=== PATIENT | female | born 1955 | race Caucasian/White ===

== ENCOUNTER → 2020-10-17 10:28 | Outpatient (CLI) | payer MEDICARE, OTHER, SELFPAY ==
--- NOTE | 2020-10-17 10:32 | MM_ITS ---
PROCEDURE: MM DIG MAMM BI DX W/CAD Digital Breast Tomosynthesis Included Right breast ultrasound complete with axilla CLINICAL INDICATION: palp area right breast COMPARISON: US US BREAST RT COMPLETE from 10/17/2020 TECHNIQUE: Standard images performed along with spot compression views of the right breast and right breast ultrasound FINDINGS: There is average fibroglandular tissue. There are no previous exams available for comparison. There is asymmetric increased density in the retroareolar region on the right in the central 1/3 of the right breast. There is some mild nipple retraction on the right. This area of asymmetric density measures approximately 4 x 4 cm. The margins are not well delineated. Indeterminate calcification noted in the region of the mass anteriorly there are mildly prominent bilateral axillary lymph nodes. The left breast has an unremarkable appearance. Right breast ultrasound: A shadowing spiculated mass is present at the 10-11 o'clock region near the nipple. The posterior margins of the mass are difficult to delineate due to the shadowing. The mass measures approximately 4 x 4 cm corresponding to the mammographic abnormality. This is highly suspicious for neoplasm. Incidental note is made and enlarged right axillary lymph node measuring 3 x 1 cm with a cortical thickness of approximately 5 mm. An additional axillary lymph node is present measuring 2.5 cm. IMPRESSION: Highly suspicious mass of the right breast. Surgical consult suggested. If imaging guided biopsy is desired, then it could be performed with ultrasound with mammotome BI-RAD Category: 5 Highly Suggestive Of Malignancy FOLLOW-UP: BIO Biopsy Recommended (A letter has been sent to the patient regarding results of the study.) Dictated by: Neftaly England MD 10/20/2020 15:52 Neftaly England MD in [place] 10/20/2020 15:52
== END ==
PROVIDERS: PCP Emergency Medicine; Visit Provider Emergency Medicine
DX: R92.8 Other abnormal and inconclusive findings on diagnostic imaging of breast (principal)
CPT/HCPCS: 76641; 77062; 77066; G0279

== ENCOUNTER → 2020-11-11 12:36 | Outpatient (CLI) | payer MEDICARE, OTHER, SELFPAY | PROVIDERS: Visit Provider Emergency Medicine | DX: R92.8 Other abnormal and inconclusive findings on diagnostic imaging of breast (principal) | CPT/HCPCS: 88173; 88305; 88342; 88360 ==

== ENCOUNTER → 2020-11-11 12:52 | Outpatient (CLI) | payer MEDICARE, OTHER, SELFPAY ==
--- NOTE | 2020-11-11 12:59 | US_ITS ---
PROCEDURE: US MAMMOTOME BX RT CLINICAL INDICATION: RT BREAST MASS COMPARISON: US US BREAST RT COMPLETE from 10/17/2020 MG MM DIG MAMM BI DX W/CAD from 10/17/2020 MG MM DIG MAMM DX UNILAT RT CAD from 11/11/2020 US US FNA LYMPH NODE from 11/11/2020 FINDINGS: Patient has a palpable right breast mass at the 10 o'clock position. Following obtaining informed consent and time-out procedure under aseptic conditions and local anesthesia with 1 percent buffered lidocaine and deeper anesthesia with lidocaine mixed with epinephrine, 10 gauge mammotome needle was inserted within the right breast mass and multiple mammotome biopsies were obtained. A clip was then placed within the mass. The patient tolerated the procedure well without evidence of immediate complication. Post biopsy mammogram was performed. In the same setting, FNA was performed of enlarged right axillary lymph node with no immediate complications. 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 Cytology of right axillary lymph node: Suspicious, rare atypical cells suspicious for tumor Post biopsy mammogram demonstrates the clip within the outer aspect of the right breast central 1/3 at approximately 10 o'clock. This is within the right breast mass previously described. There is also some asymmetry in the right axillary region likely due to lidocaine infiltration. IMPRESSION: Uneventful ultrasound-guided mammotome biopsy of the right breast which shows invasive moderately differentiated ductal carcinoma and focal ductal carcinoma in situ with FNA of right axillary lymph node suspicious for tumor. Surgical consult and oncology consult recommended Dictated by: Neftaly England MD 11/19/2020 12:19 Neftaly England MD in [place] 11/19/2020 12:19
== END ==
PROVIDERS: PCP Emergency Medicine; Visit Provider Surgery
DX: N63.10 Unspecified lump in the right breast, unspecified quadrant (principal); R92.8 Other abnormal and inconclusive findings on diagnostic imaging of breast
CPT/HCPCS: 10005; 76641; 77061; 77065; 88173; 88305; 88342; 88360; C2618; G0279

== ENCOUNTER → 2020-12-16 11:13 | Outpatient (CLI) | payer MEDICARE, OTHER, SELFPAY ==
[2020-12-16 12:29] LABS: Basophils # 0.3 K/mm3 (0-0.2); Basophils % 2.4 % (0.1-2.0); Eosinophils # 0.2 K/mm3 (0.0-0.4); Eosinophils % 1.9 % (0.1-12.0); Hematocrit 40.3 % (37.0-47.0); Hemoglobin 13.1 g/dL (12.2-16.2); Lymphocytes % 26.9 % (10-50); Mean Corpuscular HGB Conc 32.5 g/dL (31.8-35.4); Mean Corpuscular Hemoglobin 31.8 pg (27.0-31.2); Mean Platelet Volume 14.2 fl (7.4-10.4); Monocytes # 0.5 K/mm3 (0.1-1.0); Monocytes % 4.8 % (1.7-9.3); Neutrophils # 7.2 K/mm3 (1.8-7.8); Platelet Count 235 K/mm3 (142-424); Red Blood Count 4.11 M/mm3 (4.20-5.40); Red Cell Distribution Width 16.6 % (11.5-17.5); White Blood Count 11.2 K/mm3 (4.8-10.8)
[2020-12-16 13:21] LABS: Chloride 106 mmol/L (98-107); Potassium 4.2 mmoL/L (3.5-5.1); Sodium 142 mmol/L (136-145)
[2020-12-16 13:24] LABS: Anion Gap 13.2 mEq/L (5-15); Blood Urea Nitrogen 12 mg/dl (7-17); Carbon Dioxide 27 mmol/L (22.0-30.0); Estimated Glomerular Filt Rate 84 ml/min (>60); GFR (African American) 102 ML/MIN (>60)
[2020-12-16 13:25] LABS: Calcium 9.6 mg/dl (8.4-10.2); Glucose 207 mg/dl (74-100)
== END ==
PROVIDERS: Visit Provider Surgery
DX: C50.411 Malignant neoplasm of upper-outer quadrant of right female breast (principal); Z17.0 Estrogen receptor positive status [ER+]; Z01.812 Encounter for preprocedural laboratory examination; Z20.822 Contact with and (suspected) exposure to COVID-19
CPT/HCPCS: 36415; 80048; 85025; U0003

== ENCOUNTER 2020-12-18 10:52 | Observation (INO) | payer MEDICARE, OTHER, SELFPAY ==
[2020-12-15 15:02] VITALS: BMI 23.3
[2020-12-18] VITALS (23 sets, daily range): BP systolic 98–152; BP diastolic 48–102; PULSE 70–110; RESP 12–20; TEMP 36.1–43; O2SAT 93–97
--- NOTE | 2020-12-18 07:47 | HMH.ANESCL ---
[facility] Anesthesia Checklist - Structural Data Admitted From: Home Planned Operative Procedure/s: r mastectomy Consent for Planned Operative Procedure(s) Verified: Yes - Additional verifications Anesthesia Reactions: Yes (nausea) Hx Blood Transfusions: No Blood Transfusion Reaction: No - Airway Assessment C-Spine Mobility Assessed: No (limited flex/ext) TMJ Mobility Assessed: Yes Dentition: Poor Dentition - Neurological Assessment Level of Consciousness: Awake, Alert, Appropriate - Anesthesia Plan Anesthesia Risk discussed: Yes Anesthesia Plan: Verified ASA Class: III Anesthesia Type: General [facility] History I have reviewed the patient's past medical history: Yes Medical History: Reports:: Gastroesophageal Reflux Disease(GERD), Hyperlipidemia, Hypertension, Seizures Denies:: Cancer, Diabetes Mellitus Type 1, Diabetes Mellitus Type 2, MRSA *Have you ever received a pneumonia vaccine?: Yes *Have you received a flu vaccine this season?: Yes Other Medical History: Denies: Blood Transfusion Reaction Anesthesia experience/problems:: none Laterality Cases: Bilateral: Tonsillectomy Other Surgeries: Yes: Colonoscopy Amputation: No - *Social History Smoking Status: Current every day smoker Tobacco Type: cigarettes # Packs/Day (cigarettes): 1 Alcohol Intake: never Substance Use Type: denies use *Occupational Status:: retired Housing: assisted living facility *Travel in the last 8 weeks: None Family Hx:: No significant family history
--- NOTE | 2020-12-18 09:55 | HMH.GSHP ---
HPI HPI: This is a 65-year-old female with a large right-sided breast lesion. Recent biopsies confirmed ductal carcinoma. Ultrasound-guided biopsy of an enlarged axillary lymph node was positive for atypical cells. After discussion with the patient concerning the risks and benefits the decision was made to proceed with modified radical mastectomy. [facility] History Medical History: Reports:: Gastroesophageal Reflux Disease(GERD), Hyperlipidemia, Hypertension, Seizures Denies:: Cancer, Diabetes Mellitus Type 1, Diabetes Mellitus Type 2, MRSA *Have you ever received a pneumonia vaccine?: Yes *Have you received a flu vaccine this season?: Yes Other Medical History: Denies: Blood Transfusion Reaction Anesthesia experience/problems:: none Laterality Cases: Bilateral: Tonsillectomy Other Surgeries: Yes: Colonoscopy Amputation: No - *Social History Smoking Status: Current every day smoker Tobacco Type: cigarettes # Packs/Day (cigarettes): 1 Alcohol Intake: never Substance Use Type: denies use *Occupational Status:: retired Housing: assisted living facility *Travel in the last 8 weeks: None Family Hx:: No significant family history Meds Home Medications Medication Instructions Recorded Confirmed Type Albuterol Sulfate [Albuterol 2 puffs IH QIDP PRN 03/09/19 12/15/20 History Sulfate Hfa] Atorvastatin Calcium [Lipitor 40mg 40 mg PO DAILY 03/09/19 12/15/20 History Tab] Buspirone HCl [Buspirone 7.5mg 7.5 mg PO BID 03/09/19 12/15/20 History tablets] Duloxetine HCl [Cymbalta 30mg 30 mg PO DAILY 03/09/19 12/15/20 History capsule] Fluticasone Propionate 1 spray IN DAILYP PRN 03/09/19 12/15/20 History Metoprolol Succinate 50 mg PO DAILY 03/09/19 12/15/20 History OLANZapine [Zyprexa 5mg tablet] 5 mg PO HS 03/09/19 12/15/20 History raNITIdine HCL [Ranitidine HCl] 150 mg PO BID 03/09/19 12/15/20 History Benztropine Mesylate 0.5 mg PO BID 12/15/20 12/15/20 History Fluticasone Propion/Salmeterol 2 puff INHALATION BID 12/15/20 12/15/20 History [Advair HFA] Allergies Allergy/AdvReac Type Severity Reaction Status Date / Time acetaminophen [From Percocet] Allergy Verified 12/10/20 13:54 cabbage Allergy Verified 12/10/20 13:54 clarithromycin [From Biaxin] Allergy Verified 12/10/20 13:54 meperidine [From Demerol] Allergy Verified 12/10/20 13:54 mushroom Allergy Verified 12/10/20 13:54 oxycodone [From Percocet] Allergy Verified 12/10/20 13:54 rofecoxib [From Vioxx] Allergy Verified 12/10/20 13:54 shellfish derived Allergy Verified 12/10/20 13:54 Sulfa (Sulfonamide Allergy Verified 12/10/20 13:54 Antibiotics) Exam Vital signs and Labs for Last 24 Hours: Temp Pulse Resp BP Pulse Ox 97.7 F 70 18 127/74 97 12/18/20 06:18 12/18/20 06:18 12/18/20 06:18 12/18/20 06:18 12/18/20 06:18 I & O for Last 24 hours: Intake & Output 12/15/20 12/16/20 12/17/20 12/18/20 11:59 11:59 11:59 11:59 Weight 140 lb - Constitutional no acute distress - *Routine HEENT Exam Head: Present: normocephalic Eye: Present: EOMI ENT: Present: mucous membranes moist - *Routine Neck Exam Present: full ROM - Routine Chest/Breast/Axilla Exam Breast: Present: mass - *Routine Respiratory Exam Absent: respiratory distress - *Routine Cardiovascular Exam Present: RRR - *Routine Abdominal Exam Present: soft - *Routine Rectal Exam Rectal:: deferred - *Routine Genitalia Exam Genitalia:: deferred - *Routine Extremities Exam Present: full ROM - Routine Back/Spine/Pelvis Exam Back/Spine: Present: full ROM - *Routine Skin Exam Absent: erythema - *Routine Neurological Exam Present: alert - Routine Psychiatric Exam Absent: anxious Assessment and Plan (1) Breast cancer, right Status: Acute Category: Medical Code(s): C50.911 - Malignant neoplasm of unspecified site of right female breast She is scheduled for right modified radical mastectomy. I have discussed the r
--- NOTE | 2020-12-18 09:58 | P.OP_ITS ---
Date of procedure: 12/18/20 Pre-op Diagnosis:: Right breast cancer Post-op Diagnosis:: Same Procedure performed:: Right modified radical mastectomy Surgeon:: Simone Boyce MD Digital Composer(s):: Yessenia TECHNICAL APPLICATIONS SCIENTIST:: Jimena Khoury Anesthesia: GETA Estimated blood loss (mL): 100 Operative findings:: Large firm right breast mass (cancer) with projection to the chest wall. The fascia did not appear to be clinically penetrated. Significant thickening in and around the long thoracic nerve. Operative note:: After informed consent was obtained the patient was taken to the operating room and placed in the supine position. General anesthesia was induced and her right upper arm and chest were prepped and draped in a sterile fashion. An elliptical transverse incision was made to include the large upper outer quadrant/central mass, as well as, the nipple/areolar complex. The superior flap was carefully elevated with electrocautery. The inferior flap was elevated in a similar manner. As the breast was excised from the pectoralis fascia careful evaluation of the cancer showed no definitive sign of fascial penetration. The dissection was taken along the lateral margin of the pectoralis. The axillary tissue was carefully elevated as electrocautery was utilized to transect deep to the pectoralis. Significant thickening in and around the long thoracic nerve was noted. The surrounding lymphatic tissue was excised with every effort made to protect the long thoracic nerve. No definitive injury was noted. The dissection was taken to the level of the axillary vein as the contents were carefully elevated. A small office technician vein was controlled with clips. The entire axillary contents were then excised in toto and passed off along with the breast tissue as a single specimen. The specimen was marked with suture for orientation (short superior/long lateral). Electrocautery was utilized to achieve hemostasis. The entire wound was carefully irrigated. A #10 flat Kavon-Zaragoza drain was placed in the axilla and exited through a right chest stab incision. A second #10 flat Kavon-Zaragoza drain was placed along the mastectomy bed and exited through a slightly more medial stab site. The drains were secured with nylon suture. The deep subcutaneous tissue was reapproximated with interrupted 2-0 Vicryl and skin was closed with running 3-0 Stratafix. Dressings were applied and the patient was transferred to recovery in stable condition after extubation. Condition: stable Disposition: PACU Specimens:: Right modified radical mastectomy (short suture on superior margin and long suture lateral margin) Complications:: No immediate
--- NOTE | 2020-12-18 10:09 | HMH.ANESI ---
[facility] Anesthesia Record Part I Intake, IV Amount: 2,000 Estimated blood loss (mL): 100 Urine output (mL): 350 Blood Pressure: 113/94 SaO2: 94 Pulse Rate: 105 Respiratory Rate: 12 Temperature: 97 F Patient is:: Awake, Stable Stable to PACU at:: 10:05
--- NOTE | 2020-12-18 11:37 | SUR.PHASEI ---
1045 Report given to Roverto Pedersen OBRN. Pt taken to room 279
--- NOTE | 2020-12-18 12:30 | PC.NURSE ---
PT SITTING UP IN BED EATING LUNCH, TOLERATING REGULAR DIET, NO NEEDS VOICED. CALL LIGHT WITHIN REACH
--- NOTE | 2020-12-18 13:41 | PC.NURSE ---
DR. HANNA PAGED AT THIS TIME, REGARDING POST-OP ABX. STATES NO POST-OP ABX NEEDED FOR THIS CASE. Shruti/Danish MERA IN PHARMACY NOTIFIED
--- NOTE | 2020-12-18 14:01 | P.PN_ITS ---
[facility] Anesthesia Record Part II Discharge Time: 10:45 Destination: Surgical Day Care (OP Surgery) PACU nurse assessment reviewed?: Yes Patient Condition:: Good Anesthesia Complications:: None Swallowing reflex intact?: Yes Cyanosis?: No Blood Pressure: 134/64 Pulse Rate: 96 Temperature: 97 F Mental Status: Alert & Oriented Pain level:: 0 Nausea and/or vomitting:: None Intake, IV Amount: 0
[2020-12-18 14:11] LABS: Microscopic,Cath URINE MICROSCOPIC (MICROSCOPIC)
[2020-12-18 14:13] LABS: Appearance,Urine/Cath CLEAR (Clear); Bilirubin,Cath Negative (Negative); Blood, Urine/Cath Negative (Negative); Color,Urine/Cath YELLOW (Yellow); Glucose,Urine/Cath (UA) Negative (Negative); Ketones,Urine/Cath Negative (Negative); Leukocyte Esterase,Cath Negative (Negative); Nitrate,Cath Negative (Negative); PH,Urine/Cath 5.5 (5.0-8.5); Protein,Urine/Cath Negative (Negative); Specific Gravity, Urine/Cath 1.015 (1.005-1.030); Urobilinogen,Cath 0.2 EU/dl (0.2)
[2020-12-18 15:07] LABS: Squamous Epithelial Ur./Cath Occasional #/hpf (0-5)
--- NOTE | 2020-12-18 15:15 | HMH.PHAINT ---
MEDICATION RECONCILIATION COMPLETE [facility]NAL [facility] FILL HISTORY.
--- NOTE | 2020-12-18 15:20 | P.CONPHA_ITS ---
[facility] Pharmacy VTE Monitoring - Patient Demographics Admission date: 12/18/20 Report Date: 12/18/20 Time: 15:20 Allergies/Adverse Reactions: Patient Allergies acetaminophen [From Percocet] Allergy (Verified 12/10/20 13:54) cabbage Allergy (Verified 12/10/20 13:54) clarithromycin [From Biaxin] Allergy (Verified 12/10/20 13:54) meperidine [From Demerol] Allergy (Verified 12/10/20 13:54) mushroom Allergy (Verified 12/10/20 13:54) oxycodone [From Percocet] Allergy (Verified 12/10/20 13:54) rofecoxib [From Vioxx] Allergy (Verified 12/10/20 13:54) shellfish derived Allergy (Verified 12/10/20 13:54) Sulfa (Sulfonamide Antibiotics) Allergy (Verified 12/10/20 13:54) Height: 1.65 m Weight: 63.503 kg Patient Problems: Current Active Problems Breast cancer, right (Acute) - VTE Risk Was VTE Risk Assessment Performed: Yes VTE Score: 3 VTE Risk Level: Low Risk Clinical Trial Participant: No - Prophylaxis VTE Prophylaxis Ordered?: Yes Types of VTE Prophylaxis: TEDS Knee High Location of Applied Device: Bilateral Lower Extremeties
--- NOTE | 2020-12-18 16:25 | PC.NURSE ---
DR. HANNA NOTIFIED OF IV INFILTRATION, PT WITH MULTIPLE IV ATTEMPTS IN PRE-OP. ORDERS TO D/C AT THIS TIME. PT HAS NOT REQUIRED IV MEDS, TOLERATING REGULAR DIET WITHOUT N/V
--- NOTE | 2020-12-18 16:40 | PC.NURSE ---
PT HAS RESTED WELL SINCE SURGERY, A&O X 4. HEART RATE REGULAR, NO EDEMA. LUNGS CTAB, USING INCENTIVE SPIROMETER DIRECTED, BOWEL SOUNDS X 4 QUADS. TOLERATING REGULAR DIET WITHOUT N/V. NO C/O PAIN. IV DC'D PER MD ORDER, SITE INFILTRATED, PT WITH MULTIPLE IV ATTEMPTS IN PRE-OP, HAS NOT NEEDED IV MEDS. EPIFANIO DRAINS X 2, SEROSANG DRAINAGE NOTED. NO DRAINAGE NOTED TO DRESSINGS. PT MOVES EXTREMITIES EQUALLY, FULL ROM. PULSES PALPABLE. CALL LIGHT WITHIN REACH, PT MAKES NEEDS KNOWN. WILL CONTINUE TO MONITOR
[2020-12-19] VITALS: BP 142/76; PULSE 104; RESP 18; TEMP 37.1; O2SAT 99
[2020-12-19 04:00] VITALS: BP 120/50; PULSE 86; RESP 18; TEMP 36.7; O2SAT 98
[2020-12-19 05:22] LABS: Basophils % 0.2 % (0.1-2.0); Chloride 107 mmol/L (98-107); Eosinophils % 0.1 % (0.1-12.0); Hematocrit 30.6 % (37.0-47.0); Hemoglobin 10.7 g/dL (12.2-16.2); Lymphocytes # 1.6 K/mm3 (0.7-4.5); Lymphocytes % 10.4 % (10-50); Mean Corpuscular HGB Conc 34.9 g/dL (31.8-35.4); Mean Corpuscular Hemoglobin 32.7 pg (27.0-31.2); Mean Corpuscular Volume 93.6 fl (81-99); Mean Platelet Volume 8.7 fl (7.4-10.4); Monocytes # 0.7 K/mm3 (0.1-1.0); Monocytes % 4.5 % (1.7-9.3); Neutrophils # 13.2 K/mm3 (1.8-7.8); Neutrophils % 84.8 % (37.0-80.0); Platelet Count 218 K/mm3 (142-424); Red Blood Count 3.26 M/mm3 (4.20-5.40); Sodium 138 mmol/L (136-145); White Blood Count 15.6 K/mm3 (4.8-10.8)
[2020-12-19 05:25] LABS: Blood Urea Nitrogen 25 mg/dl (7-17); Carbon Dioxide 26 mmol/L (22.0-30.0); Creatinine Clearance Estimated 56 mL/min (50-200); Estimated Glomerular Filt Rate 72 ml/min (>60); GFR (African American) 87 ML/MIN (>60); MANUAL DIFFERENTIAL MANUAL DIFFERENTIAL (MANUAL DIFF)
[2020-12-19 05:26] LABS: Calcium 8.9 mg/dl (8.4-10.2); Glucose 182 mg/dl (74-100)
--- NOTE | 2020-12-19 05:26 | PC.NURSE ---
pt has rested well thorughout shift, no change from previous assessment, surgical dressing to right breast remains clean dry and intact with two ruby drains in place, pain has been well controlled, pt only needed prn pain medication x 1 this shift, pt has only had 100 ml and one unmeasured void this shift, fluids encouraged and pt verbalizes understanding, call light within reach will continue to monitor at this time
[2020-12-19 06:00] LABS: Lymphocytes % 10 % (10-50); Neutrophils % 90 % (42-76); Total Cells Counted 100
[2020-12-19 06:01] LABS: Ovalocytes 1+; Platelet Estimate Normal
[2020-12-19 08:15] VITALS: BP 131/48; PULSE 85; RESP 16; TEMP 36.8; O2SAT 98
--- NOTE | 2020-12-19 08:35 | P.PN_ITS ---
Subjective Patient reports: no new complaints Progress Note: A&P (1) Breast cancer, right Status: Acute Assessment and plan: Overall, doing well status post right modified radical mastectomy. Discharge home with outpatient follow-up [facility] teaching Exam Vital signs and Labs for Last 24 Hours: Temp Pulse Resp BP Pulse Ox 98.1 F 86 18 120/50 L 98 12/19/20 04:00 12/19/20 04:00 12/19/20 04:00 12/19/20 04:00 12/19/20 04:00 Laboratory Results - last 24 hr 12/18/20 07:50: Urine Color Yellow, Urine Appearance Clear, Urine pH 5.5, Ur Specific [place] 1.015, Urine Protein Negative, Urine Glucose (UA) Negative, Urine Ketones Negative, Urine Blood Negative, Urine Nitrate Negative, Urine Bilirubin Negative, Urine Urobilinogen 0.2, Ur Leukocyte Esterase Negative, Urine RBC None, Urine WBC None, Ur Squamous Epith Cells Occasional, Urine Bacteria None 12/19/20 05:06: WBC 15.6 H D, RBC 3.26 L, Hgb 10.7 L, Hct 30.6 L, MCV 93.6, MCH 32.7 H, MCHC 34.9, RDW 14.0, Plt Count 218, MPV 8.7, Neut % (Auto) 84.8 H, Lymph % (Auto) 10.4, [place] % (Auto) 4.5, Eos % (Auto) 0.1, Baso % (Auto) 0.2, Neut # (Auto) 13.2 H, Lymph # (Auto) 1.6, [place] # (Auto) 0.7, Eos # (Auto) 0.0, Baso # (Auto) 0.0, Total Counted 100, Neutrophils % (Manual) 90 H, Lymphocytes % (Manual) 10, Platelet Estimate Normal, Ovalocytes 1+ 12/19/20 05:06: Sodium 138, Potassium 4.0, Chloride 107, Carbon Dioxide 26, Anion Gap 9.0, BUN 25 H D, Creatinine 0.80, Estimated Creat Clear 56, Estimated GFR 72, Est GFR ( Amer) 87, Glucose 182 H, Calcium 8.9 I & O for Last 24 hours: Intake & Output 08/03/21 08/04/21 08/05/21 08/06/21 11:59 11:59 11:59 11:59 Intake Total 1999 120 / 120 Output Total 460 / 460 Balance 1999 -340 / -340 Weight 140 lb - Constitutional no acute distress - Routine Chest/Breast/Axilla Exam Comments: Dressing in place. Serosanguineous drainage and Kavon-Zaragoza drains. No spreading cellulitis. - *Routine Respiratory Exam Absent: respiratory distress - *Routine Cardiovascular Exam Present: RRR
--- NOTE | 2020-12-19 08:42 | HMH.DCSUM ---
General - General Admission date:: 12/18/20 Discharge date: 12/19/20 HPI HPI: This is a 65-year-old female who has recently been diagnosed with a large right breast cancer with enlarged axillary lymph nodes. Ultrasound-guided biopsy of the lymph nodes revealed atypical cells and the decision was made to proceed with modified radical mastectomy. Hospital Course Hospital Course: The patient underwent right modified radical mastectomy. Please see operative report for detail. Postoperatively she progressed well. She remained afebrile with stable and normal vital signs and had no difficulty ambulating. On the morning of postoperative day 1 she was deemed appropriate for discharge with close outpatient follow-up. Kavon-Zaragoza drain teaching implemented. Objective Vital signs: Temp Pulse Resp BP Pulse Ox 98.1 F 86 18 120/50 L 98 12/19/20 04:00 12/19/20 04:00 12/19/20 04:00 12/19/20 04:00 12/19/20 04:00 no acute distress - *Routine HEENT Exam Head: Present: normocephalic Eye: Present: EOMI ENT: Present: mucous membranes moist - *Routine Neck Exam Present: full ROM - Routine Chest/Breast/Axilla Exam Breast: Present: right mastectomy - *Routine Respiratory Exam Absent: respiratory distress - *Routine Cardiovascular Exam Present: RRR - *Routine Abdominal Exam Present: soft - *Routine Rectal Exam Patient deferred: visual exam - *Routine Exam Patient deferred: external exam - *Routine Extremities Exam Present: full ROM - Routine Back/Spine/Pelvis Exam Back/Spine: Present: full ROM - *Routine Skin Exam Absent: erythema - *Routine Neurological Exam Present: alert - Routine Psychiatric Exam Present: normal affect Results Labs on day of discharge: Labs from last 24 hours 12/19/20 12/19/20 12/18/20 05:06 05:06 07:50 WBC 15.6 H D RBC 3.26 L Hgb 10.7 L Hct 30.6 L MCV 93.6 MCH 32.7 H MCHC 34.9 RDW 14.0 Plt Count 218 MPV 8.7 Neut % (Auto) 84.8 H Lymph % (Auto) 10.4 [place] % (Auto) 4.5 Eos % (Auto) 0.1 Baso % (Auto) 0.2 Neut # (Auto) 13.2 H Lymph # (Auto) 1.6 [place] # (Auto) 0.7 Eos # (Auto) 0.0 Baso # (Auto) 0.0 Total Counted 100 Neutrophils % (Manual) 90 H Lymphocytes % (Manual) 10 Platelet Estimate Normal Ovalocytes 1+ Sodium 138 Potassium 4.0 Chloride 107 Carbon Dioxide 26 Anion Gap 9.0 BUN 25 H D Creatinine 0.80 Estimated Creat Clear 56 Estimated GFR 72 Est GFR ( Amer) 87 Glucose 182 H Calcium 8.9 Urine Color Yellow Urine Appearance Clear Urine pH 5.5 Ur Specific [place] 1.015 Urine Protein Negative Urine Glucose (UA) Negative Urine Ketones Negative Urine Blood Negative Urine Nitrate Negative Urine Bilirubin Negative Urine Urobilinogen 0.2 Ur Leukocyte Esterase Negative Urine RBC None Urine WBC None Ur Squamous Epith Cells Occasional Urine Bacteria None DS: Diagnosis - Discharge Diagnosis (1) Breast cancer, right Status: Acute Discharge Plan - Patient Discharge Instructions ACTIVITY: Continue current activity DIET: regular diet Additional Instructions: EPIFANIO drains -maintain on suction at all times and record daily output from each drain Patient Instructions: DI for Mastectomy - Follow up Plan Follow up with: Simone Boyce MD [Staff Physician] - 12/25/20 Disposition: Home, Self-Care Condition at discharge:: Stable Home Medications: Home Medications Medication Instructions Recorded Confirmed Type Albuterol Sulfate [Albuterol 2 puffs IH QIDP PRN 03/09/19 12/15/20 History Sulfate Hfa] Atorvastatin Calcium [Lipitor 40mg 40 mg PO DAILY 03/09/19 12/15/20 History Tab] Duloxetine HCl [Cymbalta 30mg 30 mg PO DAILY 03/09/19 12/15/20 History capsule] Fluticasone Propionate 1 spray NOSTRIL-B DAILYP PRN 03/09/19 12/18/20 History
--- NOTE | 2020-12-19 09:01 | PC.NURSE ---
Dressing noted to be falling off. New dressing in place. Pt. tolerated well, will continue to monitor.
--- NOTE | 2020-12-19 09:26 | PC.NURSE ---
Spoke with Gwen Truong regarding pt. discharge to [facility] with EPIFANIO drains.
--- NOTE | 2020-12-19 09:55 | SW/DCPLANNER ---
Addendum entered by Jammie Babcock 12/19/20 12:45: [facility] first of next week for this patient. Addendum entered by Jammie Babcock 12/19/20 10:41: Clinton with [facility] has stated that this patient can return with home health services. I will set up home health thru [facility] today. Original Note: This patient will need to discharge home with EPIFANIO drains. Per Dr Boyce the only two things that will need to be done with drains: calculate output and empty once full. I have relayed this message to Clinton with [facility]. Clinton has stated that she will come and evaluate this patient this morning. Clinton has also if patient is a candidate to return to [place] if home health services could be set up.
--- NOTE | 2020-12-19 10:20 | PC.NURSE ---
[facility] staff here to Evaluate pt. for return to [facility].
--- NOTE | 2020-12-19 10:40 | PC.NURSE ---
[facility] agreeable to take pt. back, staff will be here in 15-20minutes to pick pt. up. Discharge education provided to pt. and [facility] staff. Questions encouraged and answered. All V/U.
--- NOTE | 2020-12-19 11:00 | PC.NURSE ---
Pt. Left unit ambulatory, per pt. request. Pt. accompanied by staff x1 and [facility] staff x1.
== END 2020-12-19 11:00 | disposition home or self-care (01) ==
LOC: OB 10:54
PROVIDERS: Admitting Provider Surgery; PCP Emergency Medicine; Visit Provider Surgery
PROC: (CPT 19307; principal; 2020-12-18 07:30)
DX: C50.911 Malignant neoplasm of unspecified site of right female breast (principal); K21.9 Gastro-esophageal reflux disease without esophagitis; E78.5 Hyperlipidemia, unspecified; I10 Essential (primary) hypertension; Z88.2 Allergy status to sulfonamides; Z88.1 Allergy status to other antibiotic agents; Z88.5 Allergy status to narcotic agent; Z88.8 Allergy status to other drugs, medicaments and biological substances; Z91.013 Allergy to seafood; Z79.899 Other long term (current) drug therapy; C77.3 Secondary and unspecified malignant neoplasm of axilla and upper limb lymph nodes
CPT/HCPCS: 19307; G0378; 36415; 80048; 81001; 85007; 85025; 88309; 96374; J2405

== ENCOUNTER → 2021-01-27 08:58 | Outpatient (CLI) | payer MEDICARE, OTHER, SELFPAY ==
--- NOTE | 2021-01-27 09:18 | CT_ITS ---
PROCEDURE: CT CHEST W CON CLINCAL INDICATION: BREAST CANCER COMPARISON: No exams were available for comparison TECHNIQUE: IV Contrast: 75ml Isovue 370 Axial images obtained with sagittal and coronal reformats. All CT scans at the facility use one or more dose reduction, viz: automated exposure control, ma/kV adjustment per patient size (including targeted exams where dose is matched to indication, i.e. head), or iterative reconstruction technique. FINDINGS: HEART AND MEDIASTINAL STRUCTURES: Mildly enlarged thyroid gland with heterogeneous density and coarse calcification on the right. There are few scattered small mediastinal and hilar lymph nodes but no dominant adenopathy. LUNGS AND PLEURAL SPACES: COPD changes are present with prominence of the interstitium in scattered areas of scarring. There is mild diffuse bronchial thickening there is a noncalcified 5 mm nodule in the right upper lobe 4/20. Subpleural opacity is present in the right middle lobe at 5 mm 4/53 in the superior segment of the right lower lobe posteriorly in the subpleural region there is a parenchymal opacity measuring approximately 13 mm by 5 mm. There is some bowing of the rib inward at this area suggesting a possible old fracture with pleural changes. This cyst is in the left lung base there is a 5 mm nodular opacity posteriorly 4/66. 3 mm opacity subpleural region left lower lobe 4/35 there appears to be a suture line in the inferior aspect of the lingula. There is no given history of prior chest surgery. Please correlate with patient's history. BONY STRUCTURES: No acute bony abnormalities apparent. UPPER ABDOMEN: See abdomen report performed on the same day ADDITIONAL FINDINGS: There has been a right mastectomy with postsurgical fluid collection in the mastectomy bed consistent with seroma. No axillary adenopathy. There are few small left axillary lymph nodes. IMPRESSION: COPD with centrilobular emphysema and scattered areas of scarring with diffuse bronchial thickening and prominence of the interstitium There are scattered small subpleural and pulmonary nodular opacities. These are nonspecific and may be post inflammatory. Cannot exclude the possibility of metastatic disease therefore, short-term follow-up is suggested. Dictated by: Neftaly England MD 01/28/2021 14:06 Neftaly England MD in [place] 01/28/2021 14:06
--- NOTE | 2021-01-27 09:18 | CT_ITS ---
PROCEDURE: CT ABDOMEN PELVIS W CON CLINICAL INDICATION: BREAST CANCER COMPARISON: No exams were available for comparison TECHNIQUE: IV Contrast: 75ML Isovue 370 Oral Contrast None Axial images obtained with sagittal and coronal reformats. All CT scans at the facility use one or more dose reduction, viz: automated exposure control, ma/kV adjustment per patient size (including targeted exams where dose is matched to indication, i.e. head), or iterative reconstruction technique. FINDINGS: LOWER THORAX: See chest CT report from the same day. ABDOMEN & PELVIS: No focal liver lesion is evident. There is diffuse fatty infiltration of the liver with some sparing in the portal area. Small cystic area involves the anterior aspect of the spleen at 1 cm. The adrenal glands and pancreas has an unremarkable appearance. No renal calculi or mass evident. No intestinal obstruction or free air. No evidence of appendicitis. There appears to been a prior appendectomy however, that history is not given. Calcific density is present in the right pericolic gutter and could be due to an a skate appendicoliths. Please correlate with patient's surgical history. There is a mild amount of retained colonic feces. There are few colonic diverticula but no evidence of diverticulitis. No pelvic mass or abnormal fluid collection. There is minimal thickening of the fat in the right posterior adnexal area nonspecific. There is mild lumbar curvature convex right. No lytic or blastic bony lesions apparent. IMPRESSION: No convincing evidence of intra-abdominal metastasis. Dictated by: Neftaly England MD 01/28/2021 14:30 Neftaly England MD in [facility] 01/28/2021 14:30
[2021-01-27 09:24] LABS: Basophils # 0.1 K/mm3 (0-0.2); Basophils % 0.9 % (0.1-2.0); Eosinophils # 0.2 K/mm3 (0.0-0.4); Eosinophils % 2.3 % (0.1-12.0); Hemoglobin 13.6 g/dL (12.2-16.2); Lymphocytes # 2.6 K/mm3 (0.7-4.5); Mean Corpuscular HGB Conc 33.2 g/dL (31.8-35.4); Mean Corpuscular Hemoglobin 32.8 pg (27.0-31.2); Mean Corpuscular Volume 98.6 fl (81-99); Mean Platelet Volume 7.8 fl (7.4-10.4); Monocytes # 0.6 K/mm3 (0.1-1.0); Monocytes % 5.7 % (1.7-9.3); Neutrophils # 6.4 K/mm3 (1.8-7.8); Neutrophils % 65.1 % (37.0-80.0); Platelet Count 274 K/mm3 (142-424); Red Blood Count 4.15 M/mm3 (4.20-5.40); Red Cell Distribution Width 13.4 % (11.5-17.5); White Blood Count 9.9 K/mm3 (4.8-10.8)
[2021-01-27 09:34] LABS: Alanine Aminotransferase 24 U/L (12-78); Albumin Level 4.9 g/dl (3.5-5.0); Albumin/Globulin Ratio 1.4 (1.1-1.8); Alkaline Phosphatase 121 U/L (38-126); Anion Gap 16.2 mEq/L (5-15); Aspartate Amino Transferase 34 U/L (14-36); Bilirubin,Total 0.5 mg/dl (0.2-1.3); Blood Urea Nitrogen 13 mg/dl (7-17); Calcium 10.3 mg/dl (8.4-10.2); Carbon Dioxide 28 mmol/L (22.0-30.0); Chloride 103 mmol/L (98-107); Estimated Glomerular Filt Rate 84 ml/min (>60); GFR (African American) 102 ML/MIN (>60); Globulin 3.6 g/dL (1.3-3.2); Glucose 152 mg/dl (74-100); Potassium 4.2 mmoL/L (3.5-5.1); Sodium 143 mmol/L (136-145); Total Protein,Serum 8.5 g/dl (6.3-8.2)
== END ==
PROVIDERS: PCP Emergency Medicine; Visit Provider Internal Medicine Medical Oncology
DX: C50.911 Malignant neoplasm of unspecified site of right female breast (principal); Z03.89 Encounter for observation for other suspected diseases and conditions ruled out
CPT/HCPCS: 36415; 71260; 74177; 80053; 85025; Q9967

== ENCOUNTER → 2021-06-02 08:57 | Outpatient (CLI) | payer MEDICARE, OTHER, SELFPAY ==
--- NOTE | 2021-06-02 09:10 | CT_ITS ---
FINAL REPORT CLINICAL HISTORY: BREAST CANCER FINDINGS: CT OF THE ABDOMEN AND PELVIS WITH CONTRAST Axial CT images of the abdomen and pelvis were obtained after the administration of oral and iv contrast. Coronal reformatted images were also obtained and reviewed.This study was performed with techniques to keep radiation doses as low as reasonably achievable (ALARA). Individualized dose reduction techniques using automated exposure control or adjustment of mA and/or kV according to the patient's size were employed. Abdomen: The liver has an unremarkable appearance, without evidence of mass or biliary ductal dilatation. There is a stable 7 mm low-attenuation mass in the anterior spleen which may represent a cyst or hemangioma. There is mild left adrenal gland enlargement favored to represent hyperplasia. The pancreas has an unremarkable appearance. The kidneys are normal, without evidence of mass or hydronephrosis. The aorta is normal in caliber. There is no free fluid or adenopathy. No new mass or adenopathy. Oral contrast is much denser than usual causing streak artifact which obscures much of the detail in the pelvis or lower abdomen. Pelvis: The appendix is not well-visualized. The urinary bladder is unremarkable. No inflammatory process is seen. There is no evidence of mass or adenopathy. There is no evidence of bowel obstruction. IMPRESSION: Stable low attenuation mass in the anterior spleen which may represent a cyst or hemangioma. Mild left adrenal gland enlargement, favor hypoplasia. No new mass or adenopathy. Reviewed, Interpreted and Dictated by Hermann Madrid III, MD Transcribed by Alejandrina Millard Authenticated by Hermann Madrid III, MD on 06/02/2021 01:07:10 PM [facility]
--- NOTE | 2021-06-02 09:10 | CT_ITS ---
FINAL REPORT CLINICAL HISTORY: BREAST CANCER COMPARISON: 01/27/2021 FINDINGS: Axial CT images of the chest were obtained with contrast. Coronal reformatted images were also obtained. This study was performed with techniques to keep radiation doses as low as reasonably achievable, (ALARA). Individualized dose reduction techniques using automated exposure control or adjustment of mA and/or KV according to the patient's size were employed. Multiple thyroid nodules are visually stable. There are borderline sized mediastinal and hilar lymph nodes. A precarinal lymph node measures 17 mm and previously measured 17 mm. Other nodes are also stable. There are borderline sized left axillary nodes which are stable. Postoperative changes are seen in the right axilla. There are postoperative changes from right mastectomy. There has been interval improvement in right chest wall fluid collection which likely represents a seroma or chronic hematoma. There is moderate emphysema. Mild scarring is seen. There is a stable 5 mm nodule in the right upper lobe on image 23. There is no new mass or nodule. IMPRESSION: Stable borderline mediastinal, hilar, and left axillary lymph nodes which may be reactive. Neoplastic process is not excluded. Follow-up CT or PET-CT may be beneficial. Improved seroma or chronic hematoma in the right chest wall. Stable small right upper lobe nodule with no new mass or nodule. Reviewed, Interpreted and Dictated by Hermann Madrid III, MD Transcribed by Alejandrina Millard Authenticated by Hermann Madrid III, MD on 06/02/2021 12:52:05 PM [facility]
[2021-06-02 09:54] LABS: Blood Urea Nitrogen 17 mg/dl (7-17); Estimated Glomerular Filt Rate 84 ml/min (>60); GFR (African American) 102 ML/MIN (>60)
[2021-06-02 10:56] LABS: Basophils # 0.1 K/mm3 (0-0.2); Basophils % 1.1 % (0.1-2.0); Eosinophils # 0.1 K/mm3 (0.0-0.4); Eosinophils % 2.1 % (0.1-12.0); Hematocrit 38.5 % (37.0-47.0); Hemoglobin 12.1 g/dL (12.2-16.2); Lymphocytes # 0.8 K/mm3 (0.7-4.5); Lymphocytes % 12.7 % (10-50); Mean Corpuscular HGB Conc 31.5 g/dL (31.8-35.4); Mean Corpuscular Hemoglobin 32.2 pg (27.0-31.2); Mean Corpuscular Volume 102.1 fl (81-99); Mean Platelet Volume 8.2 fl (7.4-10.4); Monocytes # 0.4 K/mm3 (0.1-1.0); Neutrophils # 5.1 K/mm3 (1.8-7.8); Platelet Count 336 K/mm3 (142-424); Red Blood Count 3.77 M/mm3 (4.20-5.40); Red Cell Distribution Width 14.5 % (11.5-17.5); White Blood Count 6.6 K/mm3 (4.8-10.8)
[2021-06-02 10:57] LABS: Chloride 106 mmol/L (98-107); Potassium 4.4 mmoL/L (3.5-5.1); Sodium 142 mmol/L (136-145)
[2021-06-02 11:00] LABS: Alanine Aminotransferase 23 U/L (12-78); Albumin Level 4.6 g/dl (3.5-5.0); Albumin/Globulin Ratio 1.3 (1.1-1.8); Alkaline Phosphatase 110 U/L (38-126); Anion Gap 12.4 mEq/L (5-15); Aspartate Amino Transferase 36 U/L (14-36); Bilirubin,Total 0.4 mg/dl (0.2-1.3); Carbon Dioxide 28 mmol/L (22.0-30.0); Globulin 3.6 g/dL (1.3-3.2); Total Protein,Serum 8.2 g/dl (6.3-8.2)
[2021-06-02 11:01] LABS: Calcium 9.9 mg/dl (8.4-10.2); Glucose 144 mg/dl (74-100)
== END ==
PROVIDERS: PCP Emergency Medicine; Visit Provider Internal Medicine Medical Oncology
DX: C50.911 Malignant neoplasm of unspecified site of right female breast (principal); Z03.89 Encounter for observation for other suspected diseases and conditions ruled out
CPT/HCPCS: 36415; 71260; 74177; 80053; 82565; 84520; 85025; Q9967

== ENCOUNTER → 2021-06-20 10:10 | Outpatient (CLI) | payer MEDICARE, OTHER, SELFPAY ==
[2021-06-20 11:30] LABS: Basophils % 0.8 % (0.1-2.0); Eosinophils # 0.2 K/mm3 (0.0-0.4); Eosinophils % 4.1 % (0.1-12.0); Hemoglobin 12.7 g/dL (12.2-16.2); Lymphocytes # 0.7 K/mm3 (0.7-4.5); Lymphocytes % 17.3 % (10-50); Mean Corpuscular HGB Conc 32.4 g/dL (31.8-35.4); Mean Corpuscular Hemoglobin 32.5 pg (27.0-31.2); Mean Corpuscular Volume 100.1 fl (81-99); Mean Platelet Volume 8.2 fl (7.4-10.4); Monocytes # 0.3 K/mm3 (0.1-1.0); Neutrophils # 2.8 K/mm3 (1.8-7.8); Neutrophils % 70.9 % (37.0-80.0); Platelet Count 217 K/mm3 (142-424); Red Cell Distribution Width 14.1 % (11.5-17.5)
[2021-06-20 11:55] LABS: Chloride 105 mmol/L (98-107); Potassium 4.3 mmoL/L (3.5-5.1); Sodium 137 mmol/L (136-145)
[2021-06-20 11:58] LABS: Alanine Aminotransferase 22 U/L (12-78); Albumin Level 4.3 g/dl (3.5-5.0); Albumin/Globulin Ratio 1.5 (1.1-1.8); Alkaline Phosphatase 103 U/L (38-126); Anion Gap 9.3 mEq/L (5-15); Aspartate Amino Transferase 34 U/L (14-36); Bilirubin,Total 0.4 mg/dl (0.2-1.3); Blood Urea Nitrogen 13 mg/dl (7-17); Carbon Dioxide 27 mmol/L (22.0-30.0); Estimated Glomerular Filt Rate 84 ml/min (>60); GFR (African American) 102 ML/MIN (>60); Globulin 2.8 g/dL (1.3-3.2); Total Protein,Serum 7.1 g/dl (6.3-8.2)
[2021-06-20 11:59] LABS: Calcium 9.9 mg/dl (8.4-10.2); Glucose 185 mg/dl (74-100)
[2021-06-22 17:37] LABS: Hemoglobin A1C 7.1 % (4.0-6.0)
== END ==
PROVIDERS: Physician Assistant; PCP Emergency Medicine; Visit Provider Emergency Medicine
DX: R73.9 Hyperglycemia, unspecified (principal)
CPT/HCPCS: 36415; 80053; 83036; 85025

== ENCOUNTER → 2021-07-08 10:18 | Outpatient (CLI) | payer MEDICARE, OTHER, SELFPAY ==
--- NOTE | 2021-07-08 10:45 | MM_ITS ---
PROCEDURE INFORMATION: Exam: US Left Breast, Complete MG Left Diagnostic Breast Tomosynthesis Exam date and time: 07/08/2021 10:53 AM Age: 66 years old Clinical indication: Lt breast pain--hx of RT breast ca-- no palp mass; Left breast pain all over, PT has HX of mastectomy less than 1 year ago; Additional info: Lump in left breast TECHNIQUE: Imaging protocol: Complete ultrasound of all four quadrants of the Left breast and the retroareolar regions, including ultrasound of the axilla when performed. Left Diagnostic tomosynthesis and 2D mammography including computer-aided detection (CAD) when performed. Unilateral or bilateral exam. COMPARISON: MG MM DIG MAMM BI DX W/CAD 10/17/2020 10:37 AM FINDINGS: MAMMOGRAPHY: The breast tissue is composed of scattered areas of fibroglandular density. There is no stellate mass, architectural distortion or suspicious microcalcifications to suggest malignancy. No skin thickening or axillary adenopathy. The patient is status post right mastectomy ULTRASOUND: Sonographic images of the left breast including the retroareolar region, all 4 quadrants and the axilla do not demonstrate any solid or cystic masses. No architectural distortion or acoustical shadowing. No skin thickening or axillary adenopathy. IMPRESSION: Questionable palpable abnormality in the left breast . There is no mammographic or sonographic evidence of malignancy. Further evaluation of a palpable abnormality should be based on clinical grounds regardless of radiographic findings or lack thereof. Annual mammographic screening is recommended unless otherwise clinically indicated. ASSESSMENT: BI-RADS Category 1: Negative
== END ==
PROVIDERS: PCP Emergency Medicine; Visit Provider Internal Medicine Medical Oncology
DX: R92.8 Other abnormal and inconclusive findings on diagnostic imaging of breast (principal)
CPT/HCPCS: 76641; 77061; 77065; G0279

== ENCOUNTER 2021-07-30 11:00 | Outpatient (RCR) | payer MEDICARE, OTHER, SELFPAY ==
--- NOTE | 2021-07-21 13:26 | HMH.PTOPWND ---
Rehab Outpt Wound Evaluation Rehab OP Wound Evaluation Start: 07/21/21 12:54 Freq: Status: Active Protocol: Document 07/21/21 13:19 ROSALEE (Rec: 07/21/21 13:26 PHOPIERRE [id number]) Electronically Signed By Zaid Martinez, PT 07/21/21 13:19 Subjective/History History History Pt is 66 yowf who presents with c/o minimal stiffness and intermittent tingling in the R UE ~ 7 mos S/P R mastectomy (performed 12/18/20) due to R breast cancer. She reports no pain at this time and only mild tenderness in the R axilla. She had ~ 20 lymph nodes removed during surgery. She also reports undergoing radiation and chemo treatments . Subjective Subjective Currently pain is 0/10. Minimal tenderness to palpation R axilla, 1/4. Lymphedema Eval Classification of Lymphedema Secondary Lymphedema Yes Post-Surgical Lymphedema Yes Stemmer's sign Stemmer's Sign no Stage of Lymphedema Lymphedema stages Stage 0 (subjective c/o heaviness and aching) Skin Changes Dry Skin Yes Other Changes Yes Pain Scale Pain Scale (0-10) 0 Radiation Therapy Has received radiation therapy yes Chemo Therapy Has received chemo therapy yes Affected Extremities Areas Affected by Lymphedema/Edema Right Upper Extremity,Abdomen, Right Breast,Left Breast,Right Axilla Manual Lymphatic Drainage Treatment Area MLD Treatment Area Right Upper Extremity,Abdomen, Right Breast,Left Breast,Right Axilla Wound Problems/Impairments Impairments Problems/Impairmments Palpation Tenderness,Impaired Range of Motion,Impaired Endurance,Impaired Household Care,Impaired Recreational Activities,Increased Edema, Lymphedema Present,Impaired Self Care/Self Management Prognosis Rehab Potential Good Clinical Impression Consistent with Diagnosis Yes Short Term Goals Number of Weeks 4 Decreased Palpation Tenderness Yes Decrease Edema Yes Patient to Understand Lymphedema Yes Treatment and Exercises Long
== END 2021-07-30 12:00 | disposition home or self-care (01) ==
LOC: PT 11:00
PROVIDERS: PCP Emergency Medicine; Visit Provider Internal Medicine Medical Oncology
DX: I89.0 Lymphedema, not elsewhere classified (principal); C50.911 Malignant neoplasm of unspecified site of right female breast
CPT/HCPCS: 97140; 97162

== ENCOUNTER → 2022-03-18 13:07 | Outpatient (CLI) | payer MEDICARE, OTHER, SELFPAY ==
[2022-03-18 14:06] LABS: Basophils # 0.1 K/mm3 (0-0.2); Basophils % 1.3 % (0.1-2.0); Eosinophils # 0.2 K/mm3 (0.0-0.4); Eosinophils % 1.8 % (0.1-12.0); Hematocrit 37.7 % (37.0-47.0); Hemoglobin 12.5 g/dL (12.2-16.2); Lymphocytes # 1.8 K/mm3 (0.7-4.5); Lymphocytes % 21.8 % (10-50); Mean Corpuscular HGB Conc 33.1 g/dL (31.8-35.4); Mean Corpuscular Hemoglobin 32.9 pg (27.0-31.2); Mean Corpuscular Volume 99.5 fl (81-99); Mean Platelet Volume 8.2 fl (7.4-10.4); Monocytes # 0.5 K/mm3 (0.1-1.0); Monocytes % 5.7 % (1.7-9.3); Neutrophils # 5.8 K/mm3 (1.8-7.8); Neutrophils % 69.4 % (37.0-80.0); Platelet Count 298 K/mm3 (142-424); Red Blood Count 3.79 M/mm3 (4.20-5.40); Red Cell Distribution Width 13.9 % (11.5-17.5); White Blood Count 8.3 K/mm3 (4.8-10.8)
[2022-03-18 15:10] LABS: Alanine Aminotransferase 31 U/L (12-78); Albumin Level 4.6 g/dl (3.5-5.0); Albumin/Globulin Ratio 1.8 (1.1-1.8); Alkaline Phosphatase 120 U/L (38-126); Anion Gap 14.2 mEq/L (5-15); Aspartate Amino Transferase 33 U/L (14-36); Bilirubin,Total 0.2 mg/dl (0.2-1.3); Blood Urea Nitrogen 14 mg/dl (7-17); Calcium 10.5 mg/dl (8.4-10.2); Carbon Dioxide 30 mmol/L (22.0-30.0); Chloride 103 mmol/L (98-107); Estimated Glomerular Filt Rate 84 ml/min (>60); GFR (African American) 101 ML/MIN (>60); Globulin 2.6 g/dL (1.3-3.2); Glucose 154 mg/dl (74-100); Potassium 4.2 mmoL/L (3.5-5.1); Sodium 143 mmol/L (136-145); Total Protein,Serum 7.2 g/dl (6.3-8.2)
== END ==
PROVIDERS: PCP Emergency Medicine; Visit Provider Internal Medicine Medical Oncology
DX: C50.911 Malignant neoplasm of unspecified site of right female breast (principal)
CPT/HCPCS: 36415; 80053; 85025

== ENCOUNTER 2022-04-06 07:47 | Day surgery (SDC) | payer MEDICARE, OTHER, SELFPAY ==
[2022-04-06] VITALS (7 sets, daily range): BP systolic 126–151; BP diastolic 55–83; PULSE 59–65; RESP 16–18; TEMP 36.3–36.6; O2SAT 99–100; BMI 22.8
== END 2022-04-06 10:04 | disposition home or self-care (01) ==
PROVIDERS: PCP Emergency Medicine; Visit Provider Ophthalmology
DX: H25.811 Combined forms of age-related cataract, right eye (principal)
CPT/HCPCS: 66984; V2632

== ENCOUNTER 2022-04-27 08:16 | Day surgery (SDC) | payer MEDICARE, OTHER, SELFPAY ==
[2022-04-23 14:32] VITALS: BMI 22.9
[2022-04-27 08:46] VITALS: BP 107/52; PULSE 72; RESP 18; TEMP 36.2; O2SAT 99
[2022-04-27 09:25] VITALS: BP 143/61; PULSE 63; RESP 16; O2SAT 100
[2022-04-27 09:30] VITALS: BP 131/62; PULSE 64; RESP 16; O2SAT 100
[2022-04-27 09:35] VITALS: BP 119/58; PULSE 61; RESP 16; O2SAT 100
[2022-04-27 09:37] VITALS: BP 124/56; PULSE 63; RESP 16; O2SAT 100
[2022-04-27 10:00] VITALS: BP 128/62; PULSE 63; RESP 16; TEMP 36.6; O2SAT 99
== END 2022-04-27 10:21 | disposition home or self-care (01) ==
LOC: OR 08:17
PROVIDERS: PCP Emergency Medicine; Visit Provider Ophthalmology
DX: H25.812 Combined forms of age-related cataract, left eye (principal); Z72.0 Tobacco use
CPT/HCPCS: 66984; V2632

== ENCOUNTER → 2022-08-04 13:56 | Outpatient (CLI) | payer MEDICARE, OTHER, SELFPAY ==
--- NOTE | 2022-08-04 13:56 | MM_ITS ---
PROCEDURE INFORMATION: Exam: MG Left Diagnostic Breast Tomosynthesis Exam date and time: 08/04/2022 1:52 PM Age: 67 years old Clinical indication: Screening, history of left breast pain evaluated 07/09/2021. Personal history of right breast cancer, status post right mastectomy. TECHNIQUE: Imaging protocol: Left Diagnostic tomosynthesis and 2D mammography including computer-aided detection (CAD) when performed. Unilateral or bilateral exam. COMPARISON: 1. MG MM DIG MAMM DX UNILAT LT CAD 07/08/2021 10:41 AM 2. MG MM DIG MAMM BI DX W/CAD 10/17/2020 10:37 AM 3. US BREAST LT COMPLETE 07/08/2021 11:03 AM FINDINGS: MAMMOGRAPHY: Breast composition: There are scattered areas of fibroglandular density. Mass: None. Architectural distortion: None. Calcifications: No suspicious calcifications. Asymmetric density: None. Skin thickening: None. Axillary adenopathy: None. IMPRESSION: No mammographic evidence of malignancy. ASSESSMENT: BI-RADS Category 1: Negative
== END ==
PROVIDERS: PCP Emergency Medicine; Visit Provider Surgery
DX: C50.811 Malignant neoplasm of overlapping sites of right female breast (principal); Z17.0 Estrogen receptor positive status [ER+]
CPT/HCPCS: 77061; 77065; G0279

== ENCOUNTER → 2023-04-08 07:48 | Outpatient (CLI) | payer MEDICARE, OTHER, SELFPAY ==
--- NOTE | 2023-04-08 07:55 | CT_ITS ---
FINAL REPORT CLINICAL HISTORY: abdominal pain COMPARISON: 06/02/2021 FINDINGS: CT OF THE ABDOMEN AND PELVIS WITH CONTRAST Axial CT images of the abdomen and pelvis were obtained after the administration of IV contrast. Coronal and sagittal reformatted images were also obtained and reviewed. This study was performed with techniques to keep radiation doses as low as reasonably achievable (ALARA). Individualized dose reduction techniques using automated exposure control or adjustment of mA and/or kV according to the patient's size were employed. Abdomen: Mild scarring is present in the lung bases. There are postoperative changes in the anterior chest wall on the right side. These were present on the prior examination of 2021. The heart is normal in size. There is fatty infiltration of the liver present. The spleen once again shows 2 small low-attenuation masses seen on the prior CT that measure up to 7 mm in size and are unchanged in appearance. Would favor splenic cysts. There is mild left adrenal enlargement, also stable. The pancreas has an unremarkable appearance. The kidneys are normal, without evidence of mass or hydronephrosis. Moderate diffuse vascular calcification is present. There is no free fluid or adenopathy. No mass or abnormal fluid collection is seen. There is dextroscoliosis of the thoracolumbar spine. Pelvis: The appendix is normal in appearance. The urinary bladder is unremarkable. No inflammatory process is seen. There is no evidence of mass or adenopathy. There is no evidence of bowel obstruction. IMPRESSION: Fatty infiltration of the liver. 2 low-attenuation foci in the spleen, stable since the prior CT, favor cysts. Mild enlargement left adrenal gland, also stable, hyperplasia versus adenoma. Reviewed, Interpreted and Dictated by Hermann Madrid III, MD Transcribed by Lori Sharp Authenticated and . [facility]
[2023-04-08 08:15] LABS: Blood Urea Nitrogen 15 mg/dl (7-17); Estimated Glomerular Filt Rate 72 ml/min (>60); GFR (African American) 87 ML/MIN (>60)
== END ==
PROVIDERS: PCP Emergency Medicine; Visit Provider Emergency Medicine
DX: R10.9 Unspecified abdominal pain (principal)
CPT/HCPCS: 36415; 74177; 82565; 84520; Q9967

== ENCOUNTER 2023-09-05 10:05 | Emergency (ER) | payer MEDICARE, OTHER, SELFPAY ==
[2023-09-05 10:07] VITALS: BP 140/77; PULSE 86; RESP 18; TEMP 36.6; O2SAT 98; BMI 22.8
--- NOTE | 2023-09-05 10:18 | XR_ITS ---
FINAL REPORT CLINICAL HISTORY: right index finger injury FINDINGS: RIGHT HAND Three views demonstrate no acute fracture or dislocation. There is soft tissue edema overlying the tuft of the second digit. No foreign bodies identified. IMPRESSION: Soft tissue edema over the tuft of the second digit with no fracture or foreign body identified. Reviewed, Interpreted and Dictated by Shorty Bazan MD Transcribed by Alejandrina Millard Authenticated and [facility]
--- NOTE | 2023-09-05 10:22 | HMH.EDGENADL ---
Discharge Plan Disposition Patient Disposition: Home, Self-Care Prescriptions Prescriptions: No Action fluticasone furoate-vilanterol [Breo Ellipta] 200-25 mcg/dose blister with device 1 ea inhalation DAILY anastrozole 1 mg tablet 1 mg PO DAILY epinephrine 0.3 mg/0.3 mL auto-injector 0.3 mg IM ONCE PRN (Reason: allergies) metoprolol succinate 50 mg tablet extended release 24 hr 50 mg PO DAILY cetirizine 10 mg tablet See Rx Instructions .ROUTE .COMPLEX Qty: 30 11RF Dose Instruction: GIVE 1 TABLET BY MOUTH ONCE DAILY Rx Instructions: GIVE 1 TABLET BY MOUTH ONCE DAILY benztropine 0.5 MG tablet 0.5 mg PO BID multivitamin 1 EACH tablet 1 tab PO DAILY olanzapine 10 MG tablet 10 mg PO PM famotidine 20 MG tablet 20 mg PO BID buspirone 15 MG tablet 15 mg PO BID acetaminophen 325 MG tablet 325 mg PO Q4HP PRN (Reason: As Needed For Fever Or Pain) loperamide 2 MG capsule 2 mg PO Q3HP PRN (Reason: Diarrhea) dextromethorphan-guaifenesin 118 ML syrup 10 ml PO Q4HP PRN (Reason: Cough) benzonatate 100 MG capsule 100 mg PO Q8HP PRN (Reason: Cough) hydrocodone-acetaminophen 1 TAB tablet 1 - 2 tab PO Q6HP PRN (Reason: post-op pain) Qty: 27 0RF atorvastatin 40 MG tablet 40 mg PO DAILY Patient Comments: TAKE 1 TABLET BY MOUTH ONCE DAILY. albuterol sulfate 8.5 GM HFA aerosol inhaler 2 puffs IH QIDP PRN (Reason: SHORTNESS OF AIR) Patient Comments: INHALE 2 PUFFS BY MOUTH EVERY 4 HOURS NEEDED. fluticasone propionate 16 GM spray,suspension 1 spray NOSTRIL-B DAILYP PRN (Reason: ALLERGY) Patient Comments: INSTILL 1 SPRAY INTO EACH NOSTRIL ONCE DAILY duloxetine 30 MG capsule,delayed release(DR/EC) 30 mg PO DAILY Referrals Follow up/Referrals: Provider,Referral, [Referring] - See instructions Activity Restrictions/Add. Instructions Additional Instructions/Restrictions: You had a small blood blister/hematoma on the volar fat pad of your index finger. No fracture or dislocation on the x-ray. Please keep Neosporin on the wound where I drained it And keep it covered with a Band-Aid. Please follow-up with any significant spreading redness pus fevers or other concerns. Clinical Impressions Clinical Impression: Blood blister, Crushing injury of index finger Discharge ED Provider: Augusto Horowitz General Adult HPI General Chief complaint: Extremity Injury, Upper Stated complaint: right index finger infected Time Seen by Provider: 09/05/23 10:15 Mode of Arrival: Ambulatory Source of Information: Patient Limitations: No Limitations Description of Symptoms (Recalled from ER Triage Doc. by RN): Patient presents to ER with complaints of right index finger injury 4 days ago. Patient states she slammed her finger against something wood and noticed it started swelling and turning blue and purple on Tuesday. Patient denies any pain at this time just states it was not getting any better so she decided to get it checked. Upon assessment index finger is swollen and has a blood blister on the tip. History of Present Illness HPI narrative: Patient is a 68-year-old female presents today with right index finger pain and swelling. She states that she struck her index finger on the side of a wall but she had significant pain and swelling since that time and feels like it is not getting better. No injuries elsewhere she is not on any anticoagulants or antiplatelets. Related Data Home Medications Medication Instructions Recorded Confirmed albuterol sulfate 90 mcg/actuation 2 puffs inhalation QIDP PRN 03/09/19 04/06/22 aerosol inhaler SHORTNESS OF AIR atorvastatin 40 mg tablet 40 mg PO DAILY Cholesterol 03/09/19 04/06/22 duloxetine 30 mg capsule,delayed 30 mg PO DAILY Depression 03/09/19 04/06/22 release fluticasone propionate 50 1 spray NOSTRIL-B DAILYP PRN 03/09/19 04/06/22 mcg/actuation nasal ALLERGY spray,suspension benztropine 0.5 mg tablet 0.5 mg PO BID Anxiety 12/15/20 04/06/22 acetaminophen 325 mg tablet 325 mg PO Q4HP PRN As Needed For 12/18/20 04/06/22 Fever Or Pain benzonatate 100 mg capsule 100 mg PO Q8HP PRN Cough 12/18/20 04/06/22 buspirone 15 mg tablet 15 mg PO BID Anxiety 12/18/20 04/06/22 dextromethorphan-guaifenesin 10 10 ml PO Q4HP PRN Cough 12/18/20 04/06/22 mg-100 mg/5 mL oral syrup famotidine 20 mg tablet 20 mg PO BID GERD 12/18/20 04/06/22 loperamide 2 mg capsule 2 mg PO Q3HP PRN Diarrhea 12/18/20 04/06/22 multivitamin 1 tab PO DAILY Supplement 12/18/20 04/06/22 olanzapine 10 mg tablet 10 mg PO PM MOOD 12/18/20 04/06/22 metoprolol succinate 50 mg 50 mg PO DAILY bp 01/15/21 04/06/22 tablet,extended release 24 hr anastrozole 1 mg tablet 1 mg PO DAILY . 03/18/22 04/06/22 epinephrine 0.3 mg/0.3 mL 0.3 mg IM ONCE PRN allergies 03/18/22 04/06/22 injection, auto-injector fluticasone furoate 200 1 ea inhalation DAILY Asthma 03/18/22 04/06/22 mcg-vilanterol 25 mcg/dose inhalation powder (Breo Ellipta) Previous Rx's Medication Instructions Recorded hydrocodone 5 mg-acetaminophen 325 1 - 2 tab PO Q6HP PRN post-op pain 12/19/20 mg tablet #27 tabs cetirizine 10 mg tablet See Rx Instructions .Route 04/28/23 .COMPLEX #30 ea Allergies Allergy/AdvReac Type Severity Reaction Status Date / Time acetaminophen [From Percocet] Allergy Verified 03/18/22 12:35 cabbage Allergy Verified 03/18/22 12:35 clarithromycin [From Biaxin] Allergy Verified 03/18/22 12:35 meperidine [From Demerol] Allergy Verified 03/18/22 12:35 mushroom Allergy Verified 03/18/22 12:35 oxycodone [From Percocet] Allergy Verified 03/18/22 12:35 rofecoxib [From Vioxx] Allergy Verified 03/18/22 12:35 shellfish derived Allergy Verified 03/18/22 12:35 Sulfa (Sulfonamide Allergy Verified 03/18/22 12:35 Antibiotics) [facility] Disclaimer: The information contained in this section may have been updated after the patient was seen, as this information can be updated by other users. Medical History (Updated 09/05/23 @ 10:19 by Augusto Horowitz MD) Asthma GERD (gastroesophageal reflux disease) HLD (hyperlipidemia) HTN (hypertension) Breast cancer, right Surgical History History of right mastectomy Family History Other Breast cancer, right Family history of histoplasmosis Social History Smoking Status: Current every day smoker tobacco type: cigarettes packs per day: 1 alcohol intake: never substance use type: denies use current occupational status: retired Travel in the last 8 weeks: None housing: assisted living facility current occupational exposures/hazards: No caffeine: Yes ROS Obtained: Yes All systems reviewed & no additional complaints except as documented Physical Exam General General appearance: alert and in no apparent distress Respiratory Respiratory exam: Present normal lung sounds bilaterally Cardiovascular Cardiovascular exam: Present regular rate Extremities Exam Extremities exam: Present other (Right index finger with significant ecchymosis and on the volar fat pad there is a blood blister no subungual hematoma there is normal flexion and extension throughout the finger) Neurological Exam Neurological exam: Present alert and oriented X3 Medical Decision Making Chang Inquiry Pt receiving controlled substance: No Vital Signs: 09/05/23 10:07 09/05/23 10:24 Temperature 97.9 F Temperature Source Oral Pulse Rate 77 Pulse Rate [Left] 86 Respiratory Rate 18 Blood Pressure [Right Arm] 140/77 Blood Pressure Mean [Right Arm] 98 Blood Pressure Source [Right Arm] Automatic Cuff 02 Sat by Pulse Oximetry 98 98 Oxygen Delivery Method Room Air Orders (Tests/Meds): ORDERS Category Date Time Status Hand XR right minimum 3 views [XR hand RT min 3V] Stat Exams 09/05/23 10:18 Taken Medical Decision Narrative: Patient with above history and physical. Will get an x-ray to rule out any fracture or dislocation. She does have a symptomatic blood blister on the volar fat pad which would probably benefit from therapeutic drainage. Will reassess after x-ray. X-ray performed to person interpreted shows no acute fracture or dislocation I discussed with the patient the risk and benefits of draining the hematoma which she agreed to. This was successfully drained. She has significant symptomatic resolution wound management discussed. Procedures Miscellaneous Procedure Procedure Performed: Hematoma drainage Occasion significant pressure overlying volar fat pad hematoma/blood blister Site was prepped with alcohol 18-gauge needle was used small stab incision was made bloody material was evacuated and wound was dressed. Critical Care Critical Care Time Critical Care Time: No
[2023-09-05 10:24] VITALS: PULSE 77; O2SAT 98
[2023-09-05 11:16] VITALS: BP 124/62; PULSE 84; RESP 16; TEMP 36.6; O2SAT 98
== END 2023-09-05 11:17 | disposition home or self-care (01) ==
PROVIDERS: Emergency Provider Student in an Organized Health Care Education/Training Program; PCP Pediatrics
DX: S67.190A Crushing injury of right index finger, initial encounter (principal); M79.644 Pain in right finger(s); S60.420A Blister (nonthermal) of right index finger, initial encounter; W23.2XXA Caught, crushed, jammed or pinched between a moving and stationary object, initial encounter; F17.210 Nicotine dependence, cigarettes, uncomplicated
CPT/HCPCS: 10140; 73130; 99283